=== PATIENT | female | born 1985 | race Caucasian/White ===

== ENCOUNTER 2017-01-03 20:06 | Emergency (ER) | payer SELFPAY ==
[~2017-01-03] VITALS: Ht 162.6 cm; Wt 111.1 kg
[~2017-01-03 20:06] MED LIST: AC325T; ACET250T3 PO; ASPI1TAB PO; CEPH500C PO; CIPR500T78 PO; CLIN300C3 PO; CLOT45CR46 TOP; DCS100C PO; DIAZ10TA PO; DOXY100C2 PO; DULO60CA6 PO; FLC100T1 PO; HCTZ12.5T PO; HYDR-1231 PO; HYDR-3714 PO; HYDR-3730 PO; HYDR-707 PO; HYDR118S10 PO; HYDR1TAB PO; IBP800T PO; LAMO100T69 PO; LEVO300T5 PO; LEVO50CA2 PO; LNZ600T PO; LVT.05T PO; LVT.15T PO; LVT.1T PO; MECL-124; METR500T PO; MPR22T TOP; OMEP40CA36 PO; ORPH100T PO; OXYC-103 PO; OXYC-272 PO; QUET300T PO; QUET300T3 PO; SCR1T PO; SPRINTEC PO; SULF-222 PO; SULF1TAB38 PO; SULF1TAB7 PO; [UNRECOGNIZED DRUG - OTHER]
--- OUTSIDE RECORDS SUMMARY | 2017-01-03 20:13 | XMS REPORT | Continuity of Care Document ---
Author Author Interface Organization Interface Address Unknown Phone Unavailable Problems Problem Status Onset Date Classification Date Reported Comments Source No data available for this section Problem 03/29/2016 Lot18 Medications Medication Details Route Status Patient Instructions Ordering Provider Order Date Source No Known Medications No known medications Active [employer] Allergies, Adverse Reactions, Alerts Substance Category Reaction Severity Reaction type Status Date Reported Comments Source Amoxicillin Assertion Drug allergy [employer] penicillins Assertion Drug allergy [employer] Tramadol Assertion hallucinations Drug allergy [employer] Immunizations Immunization Date Given Site Status Last Updated Comments Source No data available for this section No data available for this section [employer] Results Order Name Results Value Reference Range Date Interpretation Comments Source Vital Signs Vital Sign Value Date Comments Source Encounters Location Location Details Encounter Type Encounter Number Reason For Visit Attending Provider ADM Date DC Date Status Source [facility] [id number] Emergency [id number] Jareth Dee 10/23/201501/2015 Active [employer] Emergency [id number] Jon Dean 03/24/2016 03/26/2016 [employer] [employer] Emergency [id number] Jackelin Barnes 02/09/2016 02/11/2016 [employer] Emergency [id number] Jareth Dee 10/24/2015 10/25/2015 [employer] [employer] Emergency [id number] . No Family Physician 12/17/2015 12/19/2015 [id number] [id number] Jon Dean 03/24/2016 03/24/2016 Active [email or web address] [facility] [id number] Emergency [id number] Duncan Turner 02/09/2016 02/09/2016 Active [email or web address] [id number] Emergency [id number] Monty Fulton 12/17/2015 Active [email or web address] Procedures Procedure Code Date Perfomer Comments Source No data available for this section [employer] APPENDECTOMY [employer] BILATERAL EYE [employer]. HYSTERECTOMY [employer] THYROID REMOVED [employer] TONSILECTOMY [employer].
[2017-01-03] MEDS ORDERED: TRIM/SULFAMETH 160/800 (SEPTRA DS) TAB PO ONE (20:30)
[2017-01-03] MEDS ORDERED: SULF1TAB35 PO (20:30)
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
[2017-01-03 21:05] VITALS: BP 141/70
== END 2017-01-03 21:05 | disposition home or self-care (01) ==
LOC: EDUNIT# 20:06 → ER 20:09
DX: S80.11XA Contusion of right lower leg, initial encounter (principal); W18.09XA Striking against other object with subsequent fall, initial encounter; Y92.012 Bathroom of single-family (private) house as the place of occurrence of the external cause; Y99.8 Other external cause status
CPT/HCPCS: 99283

== ENCOUNTER 2018-01-12 11:01 | Emergency (ER) | payer SELFPAY ==
[~2018-01-12] VITALS: Ht 71.1 cm; Wt 104.3 kg
[~2018-01-12 11:01] MED LIST changes: +SULF1TAB35 PO
[2018-01-12] MEDS ORDERED: LIDOCAINE 2% 20 ML (XYLOCAINE) VIAL INJ ONE (11:15)
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
[2018-01-12 12:06] LABS: BASOPHILS % (AUTO) 1 % (0-10); EOSINOPHILS # (AUTO) 0.2 10^3/uL (0.0-0.3); EOSINOPHILS % (AUTO) 4 % (0-10); HEMATOCRIT 36 % (35-52); HEMOGLOBIN 11.8 G/DL (11.5-16.0); LYMPHOCYTES % (AUTO) 34 % (12-44); MEAN CORPUSCULAR HEMOGLOBIN 29 PG (25-34); MEAN CORPUSCULAR HGB CONC 33 G/DL (32-36); MEAN CORPUSCULAR VOLUME 89 FL (80-99); MEAN PLATELET VOLUME 10.2 FL (7.4-10.4); MONOCYTES # (AUTO) 0.4 X 10^3 (0.0-1.0); MONOCYTES % (AUTO) 6 % (0-12); NEUTROPHILS # (AUTO) 3.2 X 10^3 (1.8-7.8); NEUTROPHILS % (AUTO) 55 % (42-75); PLATELET COUNT 330 10^3/uL (130-400); RED BLOOD COUNT 4.01 10^6/uL (4.35-5.85); RED CELL DISTRIBUTION WIDTH 13.7 % (10.0-14.5); WHITE BLOOD COUNT 5.8 10^3/uL (4.3-11.0)
[2018-01-12] MEDS ORDERED: SULF1TAB35 PO (12:25)
[2018-01-12] MEDS ORDERED: TRIM/SULFAMETH 160/800 (SEPTRA DS) TAB PO ONE (12:30)
[2018-01-12 12:32] LABS: ALANINE AMINOTRANSFERASE 12 U/L (0-55); ALBUMIN 3.9 GM/DL (3.2-4.5); ALKALINE PHOSPHATASE 93 U/L (40-136); BILIRUBIN,TOTAL 0.3 MG/DL (0.1-1.0); BUN/CREATININE RATIO 16; CALCIUM 9.2 MG/DL (8.5-10.1); CARBON DIOXIDE 24 MMOL/L (21-32); CHLORIDE 107 MMOL/L (98-107); CREATININE SERUM 0.76 MG/DL (0.60-1.30); GFR ESTIMATED > 60; GLUCOSE 96 MG/DL (70-105); POTASSIUM 3.2 MMOL/L (3.6-5.0); SODIUM 143 MMOL/L (135-145); TOTAL PROTEIN 7.7 GM/DL (6.4-8.2)
[2018-01-12 12:43] VITALS: BP 132/99
== END 2018-01-12 12:40 | disposition home or self-care (01) ==
LOC: EDUNIT# 11:01 → ER 11:03
DX: L02.414 Cutaneous abscess of left upper limb (principal); E03.9 Hypothyroidism, unspecified; F41.9 Anxiety disorder, unspecified; F31.9 Bipolar disorder, unspecified; F42.9 Obsessive-compulsive disorder, unspecified; F17.210 Nicotine dependence, cigarettes, uncomplicated; Z90.710 Acquired absence of both cervix and uterus; Z90.89 Acquired absence of other organs; Z82.49 Family history of ischemic heart disease and other diseases of the circulatory system; Z87.448 Personal history of other diseases of urinary system; Z88.0 Allergy status to penicillin; Z88.1 Allergy status to other antibiotic agents; Z88.8 Allergy status to other drugs, medicaments and biological substances
CPT/HCPCS: 36415; 56420; 80053; 83605; 85025; 87040; 87070; 87077; 87205

== ENCOUNTER 2018-01-13 10:13 | Emergency (ER) | payer SELFPAY ==
--- OUTSIDE RECORDS SUMMARY | 2018-01-13 10:18 | XMS REPORT ---
Author Author LIZBETH TRAN Organization [employer] Address Unknown Phone Unavailable Care Team Providers Care Sou[employer] Vendor Name Role Phone LIZBETH TRAN CP Unavailable Allergies No Known Allergies Problems Problem Type Condition Code Onset Dates Condition Status Assessment Dysuria R30.0 Active Problem Encounter for long-term (current) use of other medications V58.69 Active Problem Generalized anxiety disorder 300.02 Active Assessment Urinary tract infection, site unspecified N39.0 Active Problem Chronic pain 338.29 Active Problem Migraines 346.90 Active Problem Hypothyroidism (acquired) 244.9 Active Problem Anxiety state, unspecified 300.00 Active Problem Unspecified episodic mood disorder 296.90 Active Problem Depression 311 Active Problem Major depressive disorder, recurrent episode, moderate 296.32 Active Medications No Known Medications Procedures Procedure Coding System Code Date Office Visit, Est Pt., Level 1 CPT-4 46355 Nov 19, 2015 URINALYSIS, AUTO, W/O SCOPE CPT-4 18719 Nov 19, 2015 Results Name Result Date Reference Range Unit Abnormality Flag UA LONG DIP (IN HOUSE) ----ALIE +++ [id number] Summary Purpose [employer] Submission
--- OUTSIDE RECORDS SUMMARY | 2018-01-13 10:18 | XMS REPORT ---
Author Author Chelsea Melchor Organization [employer] Address Unknown Phone Unavailable Care Team Providers Care Sales Account Specialist Name Role Phone Chelsea Melchor CP Unavailable Allergies No Known Allergies Problems Problem Type Condition Code Onset Dates Condition Status Assessment Anxiety disorder, unspecified F41.9 Active Assessment Bipolar disorder, unspecified F31.9 Active Medications Medication Code System Code Instructions Start Date End Date Status Dosage Tylenol NDC [address]-29 not defined BuSpar NDC 0 not defined Levothyroxine Sodium NDC [address]-97 not defined Procedures Procedure Coding System Code Date Multiple services provided same day adj 2nd copay CPT-4 INTEG Nov 05, 2015 Psych Evaluation New CPT-4 99282 Nov 05, 2015 Results No Known Results Summary Purpose [employer] Submission
--- OUTSIDE RECORDS SUMMARY | 2018-01-13 10:18 | XMS REPORT ---
Author Author TEMO GALARZA Organization Unknown Address [address] [place], [place] [address] [address] Care Team Providers Care Relief Map Modeler Name Role Phone TEMO GALARZA Unavailable [facility] Unavailable Problems Problem SNOMED Onset Date Resolved Date Status N/A N/A N/A N/A N/A Allergies, Adverse Reactions Substance Code Type Code Type Reaction Severity Status NKA - NO KNOWN ALLERGIES SNOMED CT Inactive PCN (penicillin) SNOMED CT Active AMOXICILLIN RxNorm 723 Active Care Plan Date Name Code Type Code [place], Serum ([place] Level) (Li, Blood) (LiCO3) ( Lithobid) 98099 Complete Blood Count (CBC) With Differential 12373 Metabolic Panel (14), Comprehensive (MPC), CMP 63334 Thyroid-stimulating Hormone (TSH) (Thyrotropin) (Third Generation TSH) 84619 Urinalysis, Complete With Microscopic Examination (UA) ( UA Complete) 53275 Medications Medication Code Dose,Form,Route,Freq Start Date End Date QUEtiapine Fumarate - 100MG ORAL Tablet 100975 Take one (1 ) Tablet At Bedtime [place] Carbonate - 300MG ORAL Capsule 699464 Take one (1) Capsule Each Morning AND two (2) Capsules At Bedtime QUEtiapine Fumarate - 100 MG ORAL Tablet 652529 Take one (1 ) Tablet At Bedtime Benztropine Mesylate - 1 MG ORAL Tablet 507792 Take one (1 ) Tablet Twice a Day lamoTRIgine - 25 MG ORAL Tablet 257827 Take one (1) Tablet Twice a Day busPIRone - 10 MG ORAL Tablet 997555 Take one (1) Tablet Three Times a Day QUEtiapine Fumarate - 100 MG ORAL Tablet 386531 Take one (1 ) Tablet Twice a Day lamoTRIgine - 100 MG ORAL Tablet 905362 Take one (1) Tablet Twice a Day QUEtiapine Fumarate - 100 MG ORAL Tablet 986457 Take one (1 ) Tablet Twice a Day Lab Results NA Encounters Date Time Service Code Provider 11:24:00 am [facility] SCHMITT 08:35:00 am TEMO GALARZA Family History Functional Status NA Immunizations NA Vital Signs Date Time BP Pulse Temp Height Weight BMI 03:02:00 pm over 64 in 203.6 lbs 34.9 kg/m^2 Social History Date Smoking Status SNOMED Code Current Every Day Smoker [id number] Hospital Discharge Instructions NA Instructions * Not Applicable Procedures NA Purpose Electronic Copy
--- OUTSIDE RECORDS SUMMARY | 2018-01-13 10:18 | XMS REPORT ---
Author Kojo Arita [facility] [employer] Address Unknown Phone Unavailable Care Team Providers Care Master Chef Name Role Phone Kojo Bernard CP Unavailable Allergies No Known Allergies Problems Problem Type Condition Code Onset Dates Condition Status Assessment Polysubstance abuse F19.10 Active Assessment Polysubstance dependence in early, early partial, sustained full, or sustained partial remission F19.21 Active Assessment H/O thyroidectomy E89.0 Active Medications Medication Code System Code Instructions Start Date End Date [place] D[place] [address]-06 not defined BuSpar NDC 0 [place] [address]-66 not defined Procedures Procedure Coding System Code Date Charge billed by Lab CPT-4 NOBIL Nov 05, 2015 URINALYSIS AUTO WO SCOPE URINALYSIS, BY DIP STICK OR TABLET REAGENT FOR BILIRUBIN, GLUCOSE, HEMOGLOBIN, KETONES, LEUKOCYTES, NITRITE, PH, PROTEIN, SPECIFIC GRAVITY, UROBILINOGEN, ANY NUMBER OF THESE CONSTITUENTS; AUTOMATED, WITHOUTMICROSCOPY CPT-4 37058 Nov 05, 2015 GLYCOSYLATED HEMOGLOBIN TEST HEMOGLOBIN; GLYCOSYLATED (A1C) CPT-4 43640 Nov 05, 2015 OFFICEOUTPATIENT VISIT EST OFFICE OR OTHER OUTPATIENT VISIT FOR THE EVALUATION AND MANAGEMENT OF AN ESTABLISHED PATIENT, WHICHREQUIRES AT LEAST 2 OF THESE 3 DAVE COMPONENTS, AN EXPANDED PROBLEM FOCUSED HISTORY,AN EXPANDED PROBLEM FOCUSED EXAMINATION CPT-4 33231 Nov 05, 2015 URINALYSIS, AUTO W/SCOPE CPT-4 82049 Nov 05, 2015 Vital Signs Date/Time: Nov 05, 2015 Blood Pressure Systolic 130 mm Hg Cardiac Monitoring Heart Rate 90 /min Temperature 98.1 F BMI 36.16 Index Weight 214 lbs Height 64.5 in Blood Pressure Diastolic 80 mm Hg Respiratory Rate 14 /min Results Name Result Date Reference Range Unit Abnormality Flag TSH ----TSH 0.265 [id number] 0.450-4.500 uIU/mL L Hemoglobin A1c ----HEMOGLOBIN A1C 5.2 [id number] Urinalysis, Complete ----Glucose Negative [id number] Negative ----Protein Negative [id number] Negative/Trace ----Occult Blood Negative [id number] Negative ----Ketones Negative [id number] Negative ----Urobilinogen,Semi-Qn 0.2 20151105 0.2-1.0 mg/dL ----Nitrite, Urine Negative 20151105 Negative ----Bilirubin Negative 20151105 Negative ----RBC 0-2 [id number] 0 - 2 /hpf ----Appearance Clear [id number] Clear ----Epithelial Cells (non renal) 0-10 20151105 0 - 10 /hpf ----WBC Esterase 1+ [id number] Negative A ----pH 5.5 20151105 5.0-7.5 ----Microscopic Examination See below: [id number] ----WBC 0-5 [id number] 0 - 5 /hpf ----Urine-Color Yellow 20151105 Yellow ----Specific Serena 1.013 20151105 1.005-1.030 ----Mucus Threads Present [id number] Not Estab. ----Bacteria Few [id number] None seen/Few Summary Purpose [employer] Submission
--- OUTSIDE RECORDS SUMMARY | 2018-01-13 10:18 | XMS REPORT ---
Author Author ASHER SORTO Organization [employer] Address Unknown Phone Unavailable Care Team Providers Care Air Export Logistics Manager Name Role Phone ASHER SROTO CP Unavailable Allergies No Known Allergies Problems Problem Type Condition Code Onset Dates Condition Status Problem Encounter for long-term (current) use of other medications V58.69 Active Problem Generalized anxiety disorder 300.02 Active Problem Chronic pain 338.29 Active Problem Migraines 346.90 Active Problem Hypothyroidism (acquired) 244.9 Active Problem Anxiety state, unspecified 300.00 Active Problem Unspecified episodic mood disorder 296.90 Active Problem Depression 311 Active Problem Major depressive disorder, recurrent episode, moderate 296.32 Active Medications No Known Medications Results No Known Results Summary Purpose [employer] Submission
--- OUTSIDE RECORDS SUMMARY | 2018-01-13 10:19 | XMS REPORT ---
Author Author TEMO GALARZA Organization Unknown Address [address] [place] [address] Care Team Providers Care Fleet Coordinator Name Role Phone TEMO GALARZA Unavailable NHI SCHMITT Unavailable ADDIS BARRERA Unavailable Problems Problem SNOMED Onset Date Resolved Date Status Mental health problem 493699800 Active Review of medication 498247739 Active Posttraumatic stress disorder 81147789 Active Disorder of thyroid gland 79440139 Active Allergies, Adverse Reactions Substance Code Type Code Type Reaction Severity Status NKA - NO KNOWN ALLERGIES SNOMED CT Inactive PCN (penicillin) SNOMED CT Active AMOXICILLIN RxNorm 723 Active Care Plan Goal Instructions Client will be functioning more independently with supports and have a life worth living. Engage with treatment team to build rapport. Learn and practice coping skills to reduce symptoms and improve functioning. The following Services will be utilized 1 - 3 times until goal is reached: Improve and maintain functioning through medical psychiatric services. Initial Psychiatric Evaluation, Ongoing medication monitoring and management , Case Conference with multidisciplinary members of the [facility] team as indicated, and/or Collaboration and coordination with outside medical providers as indicated by providing the following services: 36101 interactive complexity 93385 psychiatric diagnostic eval w/ meds 42728 30 min psychotherapy add-on 21855 45 [place] [address] 60 min psychotherapy add-on 36419 med injection 17653 New Patient E&M (level 1) 40782 New Patient E&M (level 2) 82199 New Patient E&M (level 3) 07006 New patient E&M (level 4) 44039 New Patient E&M (level 5) 89054 Established Patient E&M (level 1) 19304 Established Patient E&M (level 2) 67771 Established Patient E&M (level 3) 78859 Established Patient E&M (level 4) 80895 Established Patient E&M (level 5 ) 9935x prolonged service code 07205 case conference w/o da & ubaldo w/ 34766 case conference w/o da song/ H0038 Peer Support Dina "I WANT TO MOVE CLOSER TO MY FAMILY SO I CAN FEEL SUPPORT AND COMPLY WITH MY PROBATION AND BE ABLE TO GET MY KIDS BACK." CM WILL ASSIST WITH MEDICATION APPOINTMENTS, REFILLS, AND TRANSFER TO [facility]. Date Name Code Type Code Townsend, Serum (Townsend Level) (Li, Blood) (LiCO3) ( Lithobid) 63521 Complete Blood Count (CBC) With Differential 51054 Metabolic Panel (14), Comprehensive (MPC), CMP 28288 Thyroid-stimulating Hormone (TSH) (Thyrotropin) (Third Generation TSH) 41625 Urinalysis, Complete With Microscopic Examination (UA) ( UA Complete) 34402 Medications Medication Code Dose,Form,Route,Freq Start Date End Date AVOID STIM, AVOID YAZAN, EMORY; MAY CONSIDER KLON LATER PT MOVING APPARENTLY, GAVE 1 RF TO GET HER CONNECTED WITH NEW CLINIC QUEtiapine Fumarate - 100MG ORAL Tablet 803932 Take one (1 ) Tablet At Bedtime Townsend Carbonate - 300MG ORAL Capsule 380849 Take one (1) Capsule Each Morning AND two (2) Capsules At Bedtime QUEtiapine Fumarate - 100 MG ORAL Tablet 068341 Take one (1 ) Tablet At Bedtime Benztropine Mesylate - 1 MG ORAL Tablet 352843 Take one (1 ) Tablet Twice a Day lamoTRIgine - 25 MG ORAL Tablet 921390 Take one (1) Tablet Twice a Day busPIRone - 10 MG ORAL Tablet 812944 Take one (1) Tablet Three Times a Day QUEtiapine Fumarate - 100 MG ORAL Tablet 610663 Take one (1 ) Tablet Twice a Day lamoTRIgine - 100 MG ORAL Tablet 448297 Take one (1) Tablet Twice a Day QUEtiapine Fumarate - 100 MG ORAL Tablet 379927 Take one (1 ) Tablet Twice a Day Prazosin HCl - 1 MG ORAL Capsule 180040 Take one (1) Capsule At Bedtime Sertraline HCl - 25 MG ORAL Tablet 641748 Take one (1) Tablet Daily lamoTRIgine - 150 MG ORAL Tablet 936771 Take one (1) Tablet Twice a Day Levothyroxine Sodium - 200 MCG ORAL Tablet 526447 Take one (1) Tablet Daily Prazosin HCl - 2 MG ORAL Capsule 416204 Take one (1) Capsule At Bedtime lamoTRIgine - 150 MG ORAL Tablet 343165 Take one (1) Tablet Twice a Day Levothyroxine Sodium - 200 MCG ORAL Tablet 399294 Take one (1) Tablet Daily Sertraline HCl - 25 MG ORAL Tablet 200522 Take one (1) Tablet Daily RisperDAL - 0.5 MG ORAL Tablet 965450 Take one (1) Tablet At Bedtime RisperDAL - 0.5 MG ORAL Tablet 938207 Take one (1) Tablet At Bedtime lamoTRIgine - 150 MG ORAL Tablet 392315 Take one (1) Tablet Twice a Day Prazosin HCl - 2 MG ORAL Capsule 332096 Take one (1) Capsule At Bedtime Levothyroxine Sodium - 200 MCG ORAL Tablet 942910 Take one (1) Tablet Daily Sertraline HCl - 25 MG ORAL Tablet 682851 Take one (1) Tablet Daily Lab Results NA Encounters Date Time Service Code Provider 11:24:00 am NHI SCHMITT 08:35:00 am TEMO GALARZA Family History Functional Status NA Immunizations NA Vital Signs Date Time BP Pulse Temp Height Weight BMI 11:55:00 am 119 over 81 82 bpm 64.5 in 237 lbs 40 kg/m^2 03:02:00 pm over 64 in 203.6 lbs 34.9 kg/m^2 Social History NA Hospital Discharge Instructions NA Hospital Discharge medications Date Medication Dose, Form, Route, Freq Code AVOID STIM, AVOID YAZAN, EMORY; MAY CONSIDER KLON LATER PT MOVING APPARENTLY, GAVE 1 RF TO GET HER CONNECTED WITH [facility] Instructions * Not Applicable Procedures NA Purpose Electronic Copy
--- OUTSIDE RECORDS SUMMARY | 2018-01-13 10:19 | XMS REPORT ---
Author Author TEMO GALARZA Organization Unknown Address [address] [place] [address] Care Team Providers Care Tool Drawing Checker Name Role Phone TEMO GALARZA Unavailable NHI SCHMITT Unavailable Problems Problem SNOMED Onset Date Resolved Date Status Mental health problem [id number] Active Review of medication 926757975 Active Posttraumatic stress disorder 19940195 Active Disorder of thyroid gland 58733837 Active Allergies, Adverse Reactions Substance Code Type [...] Initial Psychiatric Evaluation, Ongoing medication monitoring and management, Case Conference with multidisciplinary members of the [facility] [place] as indicated, and/or Collaboration and coordination with outside medical providers as indicated by providing the following services: 63085 interactive complexity 49150 psychiatric diagnostic eval w/ meds 73318 30 min psychotherapy add-on 58514 45 [place] [address] 60 min psychotherapy add-on 46262 med injection 79760 New Patient E&M (level 1) 73647 New Patient E&M (level 2) 66681 New Patient E&M (level 3) 73685 New patient E& M (level 4) 09522 New Patient E&M (level 5) 16371 Established Patient E&M ( level 1) 05010 Established Patient E&M (level 2) 27030 Established Patient E&M (level 3) 57179 Established Patient E&M (level 4) 62000 Established Patient E& M (level 5) 9935x prolonged service code 45452 case conference w/o clcrystal & fam w / 64535 case conference w/o da song/ H0038 Peer Support Dina Date Name Code Type Code Cochran, Serum (Cochran Level) (Li, Blood) (LiCO3) ( Lithobid) 18193 Complete Blood Count (CBC) With Differential 41631 Metabolic Panel (14), Comprehensive (MPC), CMP 05765 Thyroid-stimulating Hormone (TSH) (Thyrotropin) (Third Generation TSH) 45938 Urinalysis, Complete With Microscopic Examination (UA) ( UA Complete) 16599 Date Time Service Provider Location 08:00:00 am PSYCHOTHERAPY, 38-52 MINUTES [facility] [address] Medications Medication Code Dose,Form,Route,Freq Start Date End Date AVOID STIM, AVOID YAZAN, EMORY; MAY CONSIDER KLON LATER QUEtiapine Fumarate - 100MG ORAL Tablet 736077 Take one (1 ) Tablet At Bedtime Cochran Carbonate - 300MG ORAL Capsule 283881 Take one (1) Capsule Each Morning AND two (2) Capsules At Bedtime QUEtiapine Fumarate - 100 MG ORAL Tablet 685889 Take one (1 ) Tablet At Bedtime Benztropine Mesylate - 1 MG ORAL Tablet 557548 Take one (1 ) Tablet Twice a Day lamoTRIgine - 25 MG ORAL Tablet 110275 Take one (1) Tablet Twice a Day busPIRone - 10 MG ORAL Tablet 451048 Take one (1) Tablet Three Times a Day QUEtiapine Fumarate - 100 MG ORAL Tablet 220573 Take one (1 ) Tablet Twice a Day lamoTRIgine - 100 MG ORAL Tablet 933833 Take one (1) Tablet Twice a Day QUEtiapine Fumarate - 100 MG ORAL Tablet 937211 Take one (1 ) Tablet Twice a Day Prazosin HCl - 1 MG ORAL Capsule 060446 Take one (1) Capsule At Bedtime Sertraline HCl - 25 MG ORAL Tablet 892384 Take one (1) Tablet Daily lamoTRIgine - 150 MG ORAL Tablet 749164 Take one (1) Tablet Twice a Day Levothyroxine Sodium - 200 MCG ORAL Tablet 804263 Take one (1) Tablet Daily Lab Results [...] Status SNOMED Code Current Every Day Smoker [id number] Hospital Discharge Instructions NA Hospital Discharge medications Date Medication Dose, Form, Route, Freq Code AVOID STIM, AVOID YAZAN, EMORY; MAY CONSIDER KLON LATER Instructions * Not Applicable Procedures NA Purpose Electronic Copy
--- OUTSIDE RECORDS SUMMARY | 2018-01-13 10:19 | XMS REPORT | Clinical Summary ---
Author Author DVINYARD Organization Unknown Address Unknown Phone Unavailable Drug Allergies and Adverse Reactions SNOMED Allergy Type Code Substance Substance RxNorm code Reaction Severity Date Identified Date Resolved Status Problems SNOMED CT Problem Onset Date Ended Date Status Medications RxNorm Code Medication Began Ended Dosage Frequency Route Units Status Metronidazole 500 mg 4 tabs as a single dose 12/06/2015 12/06/2015 Completed Diagnostic Results Lab Results LOINC Code Lab Test Result Abnormal Completed Date CHLAMYDIA [0] N GONORRHEA [0] N HEPATITIS C KDHE [0] N HIV-KDHE4 4th GENERATION [0] N HIV RAPID NON-REACTIVE[0] N 2015 WETM01 WBC MANY[0] Y 12/06/2015 WETM02 BACTERIA MANY[0] Y 12/06/2015 WETM03 CLUE CELLS MODERATE[0] Y 12/06 WETM04 YEAST NONE SEEN[0] N 2015 WETM05 TRICHOMONAS PRESENT[0] Y 12/06 WETM06 OTHER n/a[0] N 12/06/2015 RPR NON-REACTIVE[0] N 12/10/2015 Encounters Date Location Type 12/06/2015 [facility]STD[facility] CLINIC Vital Signs Date Height(cm) Weight(kg) Head Circ(cm) BP-Systolic BP-Diastolic Temperature(C) Respiration Heart Beat Oxygen(%)
[2018-01-13 11:03] VITALS: BP 0/0
== END 2018-01-13 11:04 | disposition left against medical advice (07) ==
LOC: EDUNIT# 10:13 → ER 10:15
DX: Z48.00 Encounter for change or removal of nonsurgical wound dressing (principal)
CPT/HCPCS: 99281

== ENCOUNTER 2019-03-01 16:34 | Emergency (ER) | payer SELFPAY ==
[~2019-03-01] VITALS: Ht 162.6 cm; Wt 104.3 kg
--- OUTSIDE RECORDS SUMMARY | 2019-03-01 16:41 | XMS REPORT | Continuity of Care Document ---
Author Organization Unknown Address Unknown Allergies Active Description Code Type Severity Reaction Onset Reported/Identified Relationship to Patient Clinical Status Yes amoxicillin Drug Allergy N/A N/A 02/18/2010 Yes Penicillins Drug Allergy N/A N/A 02/18/2010 Yes amoxicillin Drug Allergy 02/18/2010 Yes Penicillins Drug Allergy 02/18/2010 Medications There is no data. Problems Date Dx Coded Attending Type Code Diagnosis Diagnosed By 02/18/2010 ИРИНА MAYERS APRN 682.2 SKIN ABSCESS OF THE TRUNK 02/18/2010 ИРИНА MAYERS APRN 705.83 HIDRADENITIS SUPPURATIVA 02/18/2010 ARVIN VALLE PHD 682.2 SKIN ABSCESS OF THE TRUNK 02/18/2010 ARVIN VALLE PHD 705.83 HIDRADENITIS SUPPURATIVA 02/18/2010 682.2 SKIN ABSCESS OF THE TRUNK 02/18/2010 705.83 HIDRADENITIS SUPPURATIVA 02/18/2010 ARVIN VALLE PHD 682.2 SKIN ABSCESS OF THE TRUNK 02/18/2010 ARVIN VALLE PHD 705.83 HIDRADENITIS SUPPURATIVA 02/18/2010 ИРИНА MAYERS APRN 682.2 SKIN ABSCESS OF THE TRUNK 02/18/2010 ИРИНА MAYERS APRN 705.83 HIDRADENITIS SUPPURATIVA 02/18/2010 ИРИНА MAYERS APRN 682.2 SKIN ABSCESS OF THE TRUNK 02/18/2010 ИРИНА MAYERS APRN 705.83 HIDRADENITIS SUPPURATIVA 02/18/2010 EDMUND VELEZ DDS 682.2 SKIN ABSCESS OF THE TRUNK 02/18/2010 EDMUND VELEZ DDS 705.83 HIDRADENITIS SUPPURATIVA 11/19/2011 ИРИНА MAYERS APRN 401.1 HYPERTENSION, BENIGN ESSENTIAL 11/19/2011 ИРИНА MAYERS APRN KAZ 461.9 SINUSITIS ACUTE 11/19/2011 TALIB GOLDNИРИНА V65.42 COUNSELING - SMOKING CESSATION 11/19/2011 ARVIN VALLE PHD 401.1 HYPERTENSION, BENIGN ESSENTIAL 11/19/2011 ARVIN VALLE PHD 461.9 SINUSITIS ACUTE 11/19/2011 ARVIN VALLE PHD V65.42 COUNSELING - SMOKING CESSATION 11/19/2011 401.1 HYPERTENSION, BENIGN ESSENTIAL 11/19/2011 461.9 SINUSITIS ACUTE 11/19/2011 V65.42 COUNSELING - SMOKING CESSATION 11/19/2011 ARVIN VALLE PHD 401.1 HYPERTENSION, BENIGN ESSENTIAL 11/19/2011 ARVIN VALLE PHD 461.9 SINUSITIS ACUTE 11/19/2011 ARVIN VALLE PHD V65.42 COUNSELING - SMOKING CESSATION 11/19/2011 MAYERS APRNИРИНА 401.1 HYPERTENSION, BENIGN ESSENTIAL 11/19/2011 TALIB GOLDNИРИНА 461.9 SINUSITIS ACUTE 11/19/2011 MAYERS INVESTMENT SALES ASSISTANT, ИРИНА KAZ V65.42 COUNSELING - SMOKING CESSATION 11/19/2011 TALIB GOLDNИРИНА 401.1 HYPERTENSION, BENIGN ESSENTIAL 11/19/2011 TALIB GOLDNИРИНА 461.9 SINUSITIS ACUTE 11/19/2011 TALIB GOLDTito ИРИНА KAZ V65.42 COUNSELING - SMOKING CESSATION 11/19/2011 WHITE DDS, EDMUND J 401.1 HYPERTENSION, BENIGN ESSENTIAL 11/19/2011 WHITE DDS, EDMUND J 461.9 SINUSITIS ACUTE 11/19/2011 WHITE DDS, EDMUND J V65.42 COUNSELING - SMOKING CESSATION 01/01/2012 TALIB EATON ИРИНА KAZ 296.32 MO DEPRESSIVE RECURRENT MODERATE 01/01/2012 TALIB EATON ИРИНА KAZ 300.00 AN ANXIETY UNSPEC 01/01/2012 ARVIN VALLE PHD 296.32 MO DEPRESSIVE RECURRENT MODERATE 01/01/2012 ARVIN VALLE PHD 300.00 AN ANXIETY UNSPEC 01/01/2012 296.32 MO DEPRESSIVE RECURRENT MODERATE 01/01/2012 300.00 AN ANXIETY UNSPEC 01/01/2012 ARVIN VALLE PHD 296.32 MO DEPRESSIVE RECURRENT MODERATE 01/01/2012 ARVIN VALLE PHD 300.00 AN ANXIETY UNSPEC 01/01/2012 ИРИНА MAYERS APRN 296.32 MO DEPRESSIVE RECURRENT MODERATE 01/01/2012 ИРИНА MAYERS APRN 300.00 AN ANXIETY UNSPEC 01/01/2012 ИРИНА MAYERS APRN 296.32 MO DEPRESSIVE RECURRENT MODERATE 01/01/2012 ИРИНА MAYERS APRN 300.00 AN ANXIETY UNSPEC 01/01/2012 EDMUND VELEZ DDS Neli 296.32 MO DEPRESSIVE RECURRENT MODERATE 01/01/2012 WHITE EDMUND BARRIENTOS Neli 300.00 AN ANXIETY UNSPEC 09/07/2012 TALIB GOLDNИРИНА 296.90 MOOD DISORDER NOS 09/07/2012 LEONARD TOTH, ARVIN Landeros 296.90 MOOD DISORDER NOS 09/07/2012 296.90 MOOD DISORDER NOS 09/07/2012 LEONARD TOTH, ARVIN Landeros 296.90 MOOD DISORDER NOS 09/07/2012 TALIB INVESTMENT SALES ASSISTANT, ИРИНА KAZ 296.90 MOOD DISORDER NOS 09/07/2012 MAYERS INVESTMENT SALES ASSISTANT, ИРИНА EMMANUELH 296.90 MOOD DISORDER NOS 09/07/2012 AGUSTIN EDMUND BARRIENTOS Neli 296.90 MOOD DISORDER NOS 09/08/2012 MAYERSCHRISTA GOLDTito ИРИНА EMMANUELH V58.69 MEDICATION HIGH RISK 09/08/2012 LEONARD TOTH, ARVIN Landeros V58.69 MEDICATION HIGH RISK 09/08/2012 V58.69 MEDICATION HIGH RISK 09/08/2012 LEONARD TOTH, ARVIN Landeros V58.69 MEDICATION HIGH RISK 09/08/2012 TALIB INVESTMENT SALES ASSISTANT, ИРИНА EMMANUELH V58.69 MEDICATION HIGH RISK 09/08/2012 TALIB INVESTMENT SALES ASSISTANT, ИРИНА EMMANUELH V58.69 MEDICATION HIGH RISK 09/08/2012 AGUSTIN EDMUND BARRIENTOS Neli V58.69 MEDICATION HIGH RISK 07/14/2013 TALIB GOLDNИРИНАH 300.02 AN GEN ANXIETY 07/14/2013 EDMUND VELEZ DDS Neli 300.02 AN GEN ANXIETY Procedures Code [place] [address] ROUTINE VENIPUNCTURE 09/13/2012 03489 LIPID PANEL 09/13/2012 66952 CBC 09/13/2012 61417 CMP 09/13/2012 5102756 GFR CALC (RESULT ONLY) 09/13/2012 68893 T4 FREE 09/14/2012 51619 T3 TOTAL 09/14/2012 52568 TSH 09/14/2012 83472 VITAMIN D 25-HYDROXY (D2,D3 , TOTAL) 09/14/2012 44263 TESTOSTERONE-WOMEN & CHILDREN 09/17/2012 60930 INDIV PSYTX 45/50 MIN 11/17/2012 56782 PSYTX PT&/FAMILY 45 MINUTES 01/03/2013 82570 PSYCH PHARM MGMT 01/11/2013 05314 PSYTX PT&/FAMILY 45 MINUTES 01/17/2013 Results There is no data. Encounters ACCT No. Visit Date/Time Discharge Status Pt. Type Provider Facility Loc./Unit Complaint [id number] 10/03/2013 14:31:00 10/03/2013 23:59:59 CLS Outpatient EDMUND VELEZ DDS [id number] 07/14/2013 16:22:00 07/14/2013 23:59:59 CLS Outpatient ИРИНА MAYERS APRN [id number] 02/21/2013 10:42:00 02/21/2013 23:59:59 CLS Outpatient ИРИНА MAYERS APRN [id number] 01/11/2013 15:53:00 01/11/2013 23:59:59 CLS Outpatient ARVIN VALLE PHD [id number] 12/28/2012 15:53:00 12/28/2012 23:59:59 CLS Outpatient [id number] 11/17/2012 14:55:00 11/17/2012 23:59:59 CLS Outpatient ARVIN VALLE PHD [id number] 09/13/2012 11:13:00 09/13/2012 23:59:59 CLS Outpatient ИРИНА MAYERS APRN
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
[2019-03-01] MEDS ORDERED: LIDOCAINE 1% INJ 20 ML 20 ML VIAL INJ ONE (17:00)
[2019-03-01] MEDS ORDERED: DEXAMETHASONE 10 MG/ML (DECADRON) 1 ML VIAL IV ONE (17:00)
[2019-03-01] MEDS ORDERED: cefTRIAXone FOR IV USE 1,000 MG in WATER (STERILE) FOR INJECTION 10 ML IV ONE (17:00)
[2019-03-01 17:11] LABS: BASOPHILS % (AUTO) 0 % (0-10); EOSINOPHILS # (AUTO) 0.3 10^3/uL (0.0-0.3); EOSINOPHILS % (AUTO) 2 % (0-10); HEMATOCRIT 35 % (35-52); HEMOGLOBIN 11.5 G/DL (11.5-16.0); LYMPHOCYTES # (AUTO) 1.2 X 10^3 (1.0-4.0); LYMPHOCYTES % (AUTO) 9 % (12-44); MEAN CORPUSCULAR HEMOGLOBIN 29 PG (25-34); MEAN CORPUSCULAR HGB CONC 33 G/DL (32-36); MEAN CORPUSCULAR VOLUME 90 FL (80-99); MONOCYTES # (AUTO) 0.6 X 10^3 (0.0-1.0); MONOCYTES % (AUTO) 5 % (0-12); NEUTROPHILS # (AUTO) 10.6 X 10^3 (1.8-7.8); NEUTROPHILS % (AUTO) 83 % (42-75); PLATELET COUNT 307 10^3/uL (130-400); RED CELL DISTRIBUTION WIDTH 14.2 % (10.0-14.5); WHITE BLOOD COUNT 12.7 10^3/uL (4.3-11.0)
[2019-03-01 17:31] LABS: ALANINE AMINOTRANSFERASE 17 U/L (0-55); ALBUMIN 4.1 GM/DL (3.2-4.5); ALKALINE PHOSPHATASE 102 U/L (40-136); BILIRUBIN,TOTAL 0.3 MG/DL (0.1-1.0); BUN/CREATININE RATIO 14; CALCIUM 9.3 MG/DL (8.5-10.1); CARBON DIOXIDE 26 MMOL/L (21-32); CHLORIDE 105 MMOL/L (98-107); CREATININE SERUM 0.79 MG/DL (0.60-1.30); GFR ESTIMATED > 60; GLUCOSE 99 MG/DL (70-105); POTASSIUM 3.7 MMOL/L (3.6-5.0); SODIUM 140 MMOL/L (135-145); TOTAL PROTEIN 7.7 GM/DL (6.4-8.2)
--- NOTE | 2019-03-01 17:37 | Diagnostic Imaging Report ---
INDICATION: Cough, shortness of air. COMPARISON STUDY: Chest from 2015. FINDINGS: Frontal and lateral views of the chest demonstrate the lungs to be clear. Heart, mediastinum, pulmonary vascularity and visualized bony thorax are normal. IMPRESSION: Normal chest. Dictated by: Dictated on workstation # [id number]
--- NOTE | 2019-03-01 17:38 | Diagnostic Imaging Report ---
CLINICAL INDICATION: Patient with sore throat. Patient states it is swollen. EXAM: X-ray of the neck soft tissue, lateral view only. COMPARISON: None. FINDINGS AND IMPRESSION: 1: There is soft tissue thickening involving the posterior oropharyngeal soft tissue measuring roughly 9 mm. There is no evidence of radiodense foreign body or subcutaneous air seen. CT scan of the neck soft tissue with contrast is suggested for further evaluation. 2: There is small amount of air within the esophagus noted in the cervical portion. Otherwise, it is unremarkable. 3: The remainder of this exam shows no other significant abnormality. Dictated by: Dictated on workstation # [id number]
[2019-03-01] MEDS ORDERED: IOHEXOL 350 MG/ML 150 ML (OMNIPAQUE 350) VIAL IV ONE (17:45)
[2019-03-01] MEDS ORDERED: HOLD METFORMIN - RECEIVED CONTRAST 20 ML VIAL IV SCH (17:45)
--- NOTE | 2019-03-01 18:39 | Diagnostic Imaging Report ---
Clinical indication: Patient with internal neck swelling, sore throat and difficulty breathing and nasal infection. Exam: CT scan of the neck soft tissue performed with 75 cc of Omnipaque 350 IV contrast. Sagittal and coronal reformatted images were created. Comparison: X-ray of the neck soft tissue dated 03/01/2019. CT scan of the neck soft tissue with contrast dated 01/11/2013. Findings: There is interval slight increased size of the bilateral neck lymph nodes. Marker lymph node is in the right level IIa region which measures 1.0 cm x 2.0 cm. There is also a prominent lymph node at the left level IIa region, measuring 1.0 cm x 1.8 cm. There is stable prominence of the posterior nasopharyngeal adenoid soft tissue. There is slight increase in prominence of the bilateral palatine tonsils and peripheral oropharyngeal soft tissue. There is no retropharyngeal fluid collection or fat stranding. There are small bilateral retropharyngeal lymph nodes which have slightly increased in size compared to the prior study. There is no peritonsillar abscess. There is interval increased size of a slightly dense lobulated area within the left infrahyoid strap muscle which measures 10 mm x 16 mm in axial dimension and is roughly 1.8 cm in craniocaudal dimension. Previously, this area measured 7 mm x 5 mm in axial dimension. The thyroid gland is not seen and may be absent from post treatment or postop changes. The laryngeal and hypopharyngeal structures are unremarkable. The bilateral salivary glands are unremarkable. The visualized portion of the lower cavity, tongue, sublingual region and submandibular area is unremarkable. The neck vascular structures are unremarkable. Visualized upper lung grajeda are clear. Cervical spine is unremarkable. Limited visualization of he intracranial structures is unremarkable. There is mild mucosal thickening involving the ethmoid sinus, right maxillary sinus and sphenoid sinus. Temporal bone structures show no significant abnormality. There is a stable chronic deformity of the medial wall of the right orbit. Impression: 1: There is slight increased soft tissue prominence of the bilateral palatine tonsils and oropharyngeal soft tissue which may be related to pharyngitis. There is no evidence of abscess or adjacent fat stranding. There is stable prominence of the posterior nasopharyngeal adenoid soft tissue. These findings may be from infection or inflammatory process. There is no retropharyngeal abscess. 2: There is interval increased size of bilateral neck lymph nodes, likely reactive. 3: There is interval increased size of a nonspecific hyperdense area in the left infrarenal strap muscle. Clinical correlation for trauma in this region is suggested. Otherwise, vascular structure or mass may be considered. A vascular varix or lymphangioma may also be considered. Nonemergent MRI of the neck soft tissue with and without IV contrast is suggested for further evaluation. Dictated by: Dictated on workstation # [id number]
[2019-03-01] MEDS ORDERED: CEFU250T80 PO (18:46)
[2019-03-01 18:58] VITALS: BP 162/119
== END 2019-03-01 18:55 | disposition home or self-care (01) ==
LOC: EDUNIT# 16:34 → ER 16:35
DX: N61.1 Abscess of the breast and nipple (principal); J02.9 Acute pharyngitis, unspecified; E03.9 Hypothyroidism, unspecified; F41.9 Anxiety disorder, unspecified; F31.9 Bipolar disorder, unspecified; F42.9 Obsessive-compulsive disorder, unspecified; Z82.49 Family history of ischemic heart disease and other diseases of the circulatory system; Z88.0 Allergy status to penicillin; Z88.6 Allergy status to analgesic agent; Z90.49 Acquired absence of other specified parts of digestive tract; Z90.710 Acquired absence of both cervix and uterus; Z90.89 Acquired absence of other organs; Z87.448 Personal history of other diseases of urinary system
CPT/HCPCS: 36415; 70360; 70491; 71046; 80053; 84703; 85025; 85379; 86308; 87430

== ENCOUNTER 2019-03-25 19:34 | Emergency (ER) | payer SELFPAY ==
[~2019-03-25] VITALS: Ht 162.6 cm; Wt 99.8 kg
[~2019-03-25 19:34] MED LIST changes: +CEFU250T80 PO
--- OUTSIDE RECORDS SUMMARY | 2019-03-25 19:42 | XMS REPORT | Continuity of Care Document ---
[...] TALIB GOLDNИРИНА 461.9 SINUSITIS ACUTE 11/19/2011 [employer], ИРИНА KAZ V65.42 COUNSELING - SMOKING CESSATION [...] Landeros 296.90 MOOD DISORDER NOS 09/07/2012 T[employer]IB [employer]OD[employer], ИРИНА KAZ 296.90 MOOD DISORDER NOS 09/07/2012 [employer], ИРИНА EMAMNUELH 296.90 MOOD DISORDER NOS 09/07/2012 AGUSTIN EDMUND BARRIENTOS Neli 296.90 MOOD DISORDER NOS 09/08/2012 MAYERSCHRISTA GOLDTito ИРИНА EMMANUELH V58.69 MEDICATION HIGH RISK 09/08/2012 LEONARD TOTH, ARVIN Landeros V58.69 MEDICATION HIGH RISK 09/08/2012 V58.69 MEDICATION HIGH RISK 09/08/2012 LEONARD TOTH, ARVIN Landeros V58.69 MEDICATION HIGH RISK 09/08/2012 [employer], ИРИНА EMMANUELH V58.69 MEDICATION HIGH RISK 09/08/2012 TAL[employer]OD[employer]ER, ИРИНА EMMANUELH V58.69 MEDICATION HIGH RISK 09/08/2012 AGUSTIN EDMUND BARRIENTOS Neli V58.69 MEDICATION HIGH RISK 07/14/2013 TALIB GOLDNИРИНАH 300.02 AN GEN ANXIETY 07/14/2013 EDMUND VELEZ DDS Neli 300.02 AN GEN ANXIETY Procedures Code Description [place] [address] ROUTINE VENIPUNCTURE 09/13/2012 96818 LIPID PANEL 09/13/2012 49868 CBC 09/13/2012 91839 CMP 09/13/2012 1604650 GFR CALC (RESULT ONLY) 09/13/2012 28664 T4 FREE 09/14/2012 96754 T3 TOTAL 09/14/2012 62589 TSH 09/14/2012 88830 VITAMIN D 25-HYDROXY (D2,D3 , TOTAL) 09/14/2012 64199 TESTOSTERONE-WOMEN & CHILDREN 09/17/2012 42737 INDIV PSYTX 45/50 MIN 11/17/2012 10410 PSYTX PT&/FAMILY 45 MINUTES 01/03/2013 90665 PSYCH PHARM MGMT 01/11/2013 92460 PSYTX PT&/FAMILY 45 MINUTES 01/17/2013 Results There is no data. Encounters ACCT No. Visit Date/Time Discharge Status Pt. Type Provider Facility Loc./Unit Complaint [id number] 10/03/2013 14:31:00 10/03/2013 23:59:59 CLS Outpatient EDMUND VELEZ DDS [id number] 07/14/2013 16:22:00 07/14/2013 23:59:59 CLS Outpatient ИРИНА MAYERS APRN [id number] 02/21/2013 10:42:00 02/21/2013 23:59:59 CLS Outpatient ИРИНА MAYERS APRN [id number] 01/11/2013 15:53:00 01/11/2013 23:59:59 CLS Outpatient ARVIN VALLE PHD [id number] 12/28/2012 15:53:00 12/28/2012 23:59:59 CLS Outpatient [id number] 11/17/2012 14:55:00 11/17/2012 23:59:59 CLS Outpatient ARVIN AVLLE PHD [id number] 09/13/2012 11:13:00 09/13/2012 23:59:59 CLS Outpatient ИРИНА MAYERS APRN
[2019-03-25] MEDS ORDERED: NS IV 1000 ML 1,000 ML IV SCH (20:15)
[2019-03-25] MEDS ORDERED: cefTRIAXone FOR IV USE 1,000 MG in WATER (STERILE) FOR INJECTION 10 ML IV ONE (20:15)
[2019-03-25 20:17] LABS: BASOPHILS % (AUTO) 0 % (0-10); EOSINOPHILS # (AUTO) 0.2 10^3/uL (0.0-0.3); EOSINOPHILS % (AUTO) 2 % (0-10); HEMATOCRIT 33 % (35-52); HEMOGLOBIN 10.7 G/DL (11.5-16.0); LYMPHOCYTES # (AUTO) 1.7 X 10^3 (1.0-4.0); LYMPHOCYTES % (AUTO) 20 % (12-44); MEAN CORPUSCULAR HEMOGLOBIN 29 PG (25-34); MEAN CORPUSCULAR HGB CONC 33 G/DL (32-36); MEAN CORPUSCULAR VOLUME 89 FL (80-99); MEAN PLATELET VOLUME 10.8 FL (7.4-10.4); MONOCYTES # (AUTO) 0.7 X 10^3 (0.0-1.0); MONOCYTES % (AUTO) 8 % (0-12); NEUTROPHILS # (AUTO) 5.9 X 10^3 (1.8-7.8); NEUTROPHILS % (AUTO) 70 % (42-75); PLATELET COUNT 379 10^3/uL (130-400); RED CELL DISTRIBUTION WIDTH 14.6 % (10.0-14.5); WHITE BLOOD COUNT 8.5 10^3/uL (4.3-11.0)
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
[2019-03-25 20:36] LABS: ALANINE AMINOTRANSFERASE 24 U/L (0-55); ALBUMIN 3.9 GM/DL (3.2-4.5); ALKALINE PHOSPHATASE 101 U/L (40-136); BILIRUBIN,TOTAL 0.3 MG/DL (0.1-1.0); BUN/CREATININE RATIO 13; CALCIUM 9.2 MG/DL (8.5-10.1); CARBON DIOXIDE 22 MMOL/L (21-32); CHLORIDE 107 MMOL/L (98-107); CREATININE SERUM 0.97 MG/DL (0.60-1.30); GFR ESTIMATED > 60; GLUCOSE 88 MG/DL (70-105); POTASSIUM 4.5 MMOL/L (3.6-5.0); SODIUM 141 MMOL/L (135-145); TOTAL PROTEIN 8.1 GM/DL (6.4-8.2)
[2019-03-25 20:39] LABS: ERYTHROCYTE SEDIMENTATION RATE 47 MM/HR (0-20)
[2019-03-25 20:41] LABS: BILIRUBIN,URINE NEGATIVE (NEGATIVE); CLARITY,URINE CLEAR; COLOR,URINE YELLOW; GLUCOSE, URINE (UA) NEGATIVE (NEGATIVE); KETONES,URINE NEGATIVE (NEGATIVE); LEUKOCYTE ESTERASE ,URINE 1+ (NEGATIVE); NITRITE,URINE NEGATIVE (NEGATIVE); PH,URINE 7 (5-9); PROTEIN,URINE 1+ (NEGATIVE); UROBILINOGEN,URINE 1 MG/DL (NORMAL)
[2019-03-25 20:51] LABS: BACTERIA,URINE FEW /HPF
[2019-03-25] MEDS ORDERED: SULF1TAB35 PO (20:52)
[2019-03-25] MEDS ORDERED: CEPH-507 PO (20:52)
[2019-03-25 20:55] LABS: AMPHETAMINE SCREEN, URINE NEGATIVE (NEGATIVE); BARBITURATE SCREEN URINE NEGATIVE (NEGATIVE); BENZODIAZEPINES SCREEN URINE POSITIVE (NEGATIVE); CANNABINOID SCREEN, URINE NEGATIVE (NEGATIVE); COCAINE SCREEN URINE NEGATIVE (NEGATIVE); METHADONE STAT NEGATIVE (NEGATIVE); METHAMPHETAMINE SCREEN URINE S NEGATIVE (NEGATIVE); OPIATE SCREEN URINE NEGATIVE (NEGATIVE); OXYCODONE STAT NEGATIVE (NEGATIVE); PROPOXYPHENE STAT NEGATIVE (NEGATIVE); TRICYCLIC ANTIDEPRESSANTS SCRE NEGATIVE (NEGATIVE)
[2019-03-25 21:26] VITALS: BP 139/96
== END 2019-03-25 21:27 | disposition home or self-care (01) ==
LOC: EDUNIT# 19:34 → ER 19:36
DX: L03.115 Cellulitis of right lower limb (principal); L03.116 Cellulitis of left lower limb; E03.9 Hypothyroidism, unspecified; F41.9 Anxiety disorder, unspecified; F31.9 Bipolar disorder, unspecified; F42.9 Obsessive-compulsive disorder, unspecified; Z88.0 Allergy status to penicillin; Z88.6 Allergy status to analgesic agent; Z90.49 Acquired absence of other specified parts of digestive tract; Z82.49 Family history of ischemic heart disease and other diseases of the circulatory system; Z98.890 Other specified postprocedural states; Z90.710 Acquired absence of both cervix and uterus; Z90.89 Acquired absence of other organs; Z87.448 Personal history of other diseases of urinary system
CPT/HCPCS: 36415; 80053; 80306; 81000; 85025; 85652; 87040; 87088

== ENCOUNTER 2019-11-14 00:01 | Emergency (ER) | payer SELFPAY ==
[~2019-11-14] VITALS: Ht 162 cm; Wt 110.0 kg
[~2019-11-14 00:01] MED LIST changes: +CEPH-507 PO
[2019-11-14] MEDS ORDERED: NAPR-915 PO (01:09)
[2019-11-14] MEDS ORDERED: RX-NAPROXEN (NAPROSYN) 250 MG TAB PPK#4 PO STA (01:09)
[2019-11-14] MEDS ORDERED: CLIN300C11 PO (01:09)
[2019-11-14] MEDS ORDERED: LIDO15SO2 MM (01:09)
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
[2019-11-14] MEDS ORDERED: CLINDAMYCIN 300 MG/2ML (CLEOCIN) VIAL ONE (01:12)
[2019-11-14] MEDS ORDERED: LIDOCAINE 2% VISCOUS 15 ML UDC PO ONE (01:15)
[2019-11-14] MEDS ORDERED: CLINDAMYCIN 600 MG/4ML (CLEOCIN) VIAL IM ONE (01:15)
[2019-11-14 01:41] VITALS: BP 140/98
== END 2019-11-14 01:42 | disposition home or self-care (01) ==
LOC: EDUNIT# 00:01 → ER 00:04
DX: K04.7 Periapical abscess without sinus (principal); E03.9 Hypothyroidism, unspecified; F41.9 Anxiety disorder, unspecified; F31.9 Bipolar disorder, unspecified; F42.9 Obsessive-compulsive disorder, unspecified; F17.210 Nicotine dependence, cigarettes, uncomplicated; Z88.1 Allergy status to other antibiotic agents; Z88.0 Allergy status to penicillin; Z88.5 Allergy status to narcotic agent; Z90.49 Acquired absence of other specified parts of digestive tract; Z90.710 Acquired absence of both cervix and uterus; Z90.89 Acquired absence of other organs; Z82.49 Family history of ischemic heart disease and other diseases of the circulatory system
CPT/HCPCS: 96372; 99284

== ENCOUNTER 2020-05-17 13:32 | Emergency (ER) | payer OTHER ==
[~2020-05-17] VITALS: Ht 162.5 cm; Wt 115.2 kg
[~2020-05-17 13:32] MED LIST changes: +CLIN300C11 PO; +LIDO20SO23 MM; +NAPR-915 PO
[2020-05-17 13:45] LABS: BILIRUBIN,URINE NEGATIVE (NEGATIVE); CLARITY,URINE CLEAR; COLOR,URINE YELLOW; GLUCOSE, URINE (UA) NEGATIVE (NEGATIVE); KETONES,URINE NEGATIVE (NEGATIVE); LEUKOCYTE ESTERASE ,URINE NEGATIVE (NEGATIVE); NITRITE,URINE NEGATIVE (NEGATIVE); PROTEIN,URINE TRACE (NEGATIVE)
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
[2020-05-17 13:54] LABS: BACTERIA,URINE MODERATE /HPF
[2020-05-17] MEDS ORDERED: LACTATED RINGERS 1,000 ML IV ONE (13:56)
[2020-05-17 14:00] LABS: AMPHETAMINE SCREEN, URINE POSITIVE (NEGATIVE); BARBITURATE SCREEN URINE NEGATIVE (NEGATIVE); BENZODIAZEPINES SCREEN URINE NEGATIVE (NEGATIVE); CANNABINOID SCREEN, URINE NEGATIVE (NEGATIVE); COCAINE SCREEN URINE NEGATIVE (NEGATIVE); METHADONE STAT NEGATIVE (NEGATIVE); METHAMPHETAMINE SCREEN URINE S POSITIVE (NEGATIVE); OPIATE SCREEN URINE NEGATIVE (NEGATIVE); OXYCODONE STAT NEGATIVE (NEGATIVE); PROPOXYPHENE STAT NEGATIVE (NEGATIVE); TRICYCLIC ANTIDEPRESSANTS SCRE NEGATIVE (NEGATIVE)
[2020-05-17] MEDS ORDERED: cefTRIAXone FOR IV USE 1,000 MG in WATER (STERILE) FOR INJECTION 10 ML IV ONE (14:00)
--- NOTE | 2020-05-17 14:05 | NUR ---
Unable to obtain IV access. Pt reports being in rehab for IV meth use. Dr. Gayle notified.
[2020-05-17] MEDS ORDERED: LIDOCAINE 1% INJ 20 ML 20 ML VIAL INJ ONE (14:30)
[2020-05-17] MEDS ORDERED: cefTRIAXone 1,000 MG/2.86 ml vial (IM ONLY) IM ONE (14:30)
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
[2020-05-17 14:50] LABS: BASOPHILS % (AUTO) 0 % (0-10); EOSINOPHILS # (AUTO) 0.2 10^3/uL (0.0-0.3); EOSINOPHILS % (AUTO) 3 % (0-10); HEMATOCRIT 36 % (35-52); HEMOGLOBIN 11.6 G/DL (11.5-16.0); LYMPHOCYTES # (AUTO) 1.7 X 10^3 (1.0-4.0); LYMPHOCYTES % (AUTO) 25 % (12-44); MEAN CORPUSCULAR HEMOGLOBIN 29 PG (25-34); MEAN CORPUSCULAR HGB CONC 33 G/DL (32-36); MEAN CORPUSCULAR VOLUME 90 FL (80-99); MEAN PLATELET VOLUME 10.1 FL (7.4-10.4); MONOCYTES # (AUTO) 0.4 X 10^3 (0.0-1.0); MONOCYTES % (AUTO) 6 % (0-12); NEUTROPHILS # (AUTO) 4.6 X 10^3 (1.8-7.8); NEUTROPHILS % (AUTO) 67 % (42-75); PLATELET COUNT 329 10^3/uL (130-400); RED CELL DISTRIBUTION WIDTH 14.6 % (10.0-14.5); WHITE BLOOD COUNT 6.9 10^3/uL (4.3-11.0)
--- NOTE | 2020-05-17 15:07 | Diagnostic Imaging Report ---
EXAMINATION: Supine abdomen at 03:04 p.m. INDICATION: Hematuria. FINDINGS: There is some gas in both large and small bowel in a nonspecific fashion. There is no evidence for bowel obstruction. There is no mass or organomegaly identified. There are no pathological calcifications overlying the kidneys, although both kidneys are partially obscured by overlying bowel gas and fecal material. There are number of calcifications in the pelvis. I suspect that these are phleboliths. There are also vascular calcifications within the pelvis. The osseous structures are intact. IMPRESSION: 1. The bowel gas pattern is nonspecific. There is no acute abnormality identified. 2. There is no evidence for nephrolithiasis. Dictated by: Dictated on workstation # [id number]
[2020-05-17 15:09] LABS: ALBUMIN 4.1 GM/DL (3.2-4.5); BILIRUBIN,TOTAL 0.3 MG/DL (0.1-1.0); CALCIUM 9.5 MG/DL (8.5-10.1); CREATININE SERUM 1.05 MG/DL (0.60-1.30); POTASSIUM 3.1 MMOL/L (3.6-5.0); TOTAL PROTEIN 7.8 GM/DL (6.4-8.2)
--- NOTE | 2020-05-17 15:28 | Diagnostic Imaging Report ---
CT ABD/PELVIS WO(KIDNEY STONE). TECHNIQUE: Unenhanced CT imaging of the abdomen and pelvis was performed. 2-D reformats are created and submitted for interpretation. Automatic exposure controls were utilized to optimize patient dose. INDICATION: Blood in urine, back pain. COMPARISON: None available. FINDINGS: Evaluation of the abdominal viscera is mildly limited without contrast. Lower chest: The lung bases are clear. No pericardial or pleural effusion. Peritoneum: No free intraperitoneal air or fluid. Liver and biliary system: Unenhanced liver is normal. The gallbladder is normal. No biliary duct dilation. Spleen and Pancreas: Spleen is normal. Unenhanced pancreas is grossly normal. Adrenals: Normal. tract: No renal or ureteral calculi. No obstructive uropathy. Urinary bladder is decompressed, limiting assessment. Hysterectomy has been performed. No adnexal mass. GI tract: Stomach is partially filled with fluid and there is no wall thickening. No bowel obstruction. No pericolonic inflammatory changes. Appendectomy. Vasculature and Lymph nodes: Normal caliber aorta. No abdominal or pelvic lymphadenopathy. Musculoskeletal: No concerning osseous lesion. IMPRESSION: 1. No urinary tract calculi or obstructive uropathy. 2. Appendectomy. No features of colitis or diverticulitis. 3. Hysterectomy. Dictated by: Dictated on workstation # [id number]
[2020-05-17] MEDS ORDERED: NITR-65 PO (15:38)
[2020-05-17 15:40] VITALS: BP 96/80
== END 2020-05-17 15:40 | disposition home or self-care (01) ==
LOC: EDUNIT# 13:32 → ER 13:33
DX: N39.0 Urinary tract infection, site not specified (principal); G89.29 Other chronic pain; M54.9 Dorsalgia, unspecified; E03.9 Hypothyroidism, unspecified; F17.210 Nicotine dependence, cigarettes, uncomplicated; Z79.890 Hormone replacement therapy; Z87.820 Personal history of traumatic brain injury; Z79.891 Long term (current) use of opiate analgesic; Z88.0 Allergy status to penicillin; Z88.5 Allergy status to narcotic agent; Z82.49 Family history of ischemic heart disease and other diseases of the circulatory system
CPT/HCPCS: 36415; 74018; 74176; 80053; 80306; 81000; 85025; 87088

== ENCOUNTER 2020-11-28 03:06 | Emergency (ER) | payer SELFPAY ==
[~2020-11-28] VITALS: Ht 162.5 cm; Wt 105.6 kg
[~2020-11-28 03:06] MED LIST changes: -CLIN300C11 PO; +CLIN300C12 PO; +NITR-65 PO
[2020-11-28 03:19] VITALS: BP 188/125
[2020-11-28] MEDS ORDERED: PHENAZOPYRIDINE 100 MG (PYRIDIUM) TABLET PO ONE (03:30)
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
[2020-11-28 03:33] LABS: BILIRUBIN,URINE NEGATIVE (NEGATIVE); CLARITY,URINE CLOUDY; COLOR,URINE BROWN; GLUCOSE, URINE (UA) NEGATIVE (NEGATIVE); KETONES,URINE NEGATIVE (NEGATIVE); LEUKOCYTE ESTERASE ,URINE 2+ (NEGATIVE); NITRITE,URINE POSITIVE (NEGATIVE); PROTEIN,URINE 3+ (NEGATIVE)
[2020-11-28 03:42] LABS: BACTERIA,URINE MODERATE /HPF; RBC,URINE TNTC /HPF; SQUAMOUS EPITHELIAL CELL,UR RARE /HPF; WBC,URINE 25-50 /HPF
[2020-11-28] MEDS ORDERED: cefTRIAXone 1,000 MG/2.86 ml vial (IM ONLY) IM SCH (03:45)
[2020-11-28] MEDS ORDERED: LIDOCAINE 1% INJ 20 ML 20 ML VIAL INJ ONE (03:45)
[2020-11-28] MEDS ORDERED: SULF1TAB35 PO (03:48)
[2020-11-28] MEDS ORDERED: NAPROXEN 250 MG (NAPROSYN) TABLET PO ONE (04:00)
== END 2020-11-28 04:14 | disposition home or self-care (01) ==
LOC: EDUNIT# 03:06 → ER 03:12
DX: N30.00 Acute cystitis without hematuria (principal); E03.9 Hypothyroidism, unspecified; G89.29 Other chronic pain; Z79.890 Hormone replacement therapy; Z79.891 Long term (current) use of opiate analgesic; Z79.1 Long term (current) use of non-steroidal anti-inflammatories (NSAID); Z88.0 Allergy status to penicillin; Z88.1 Allergy status to other antibiotic agents; Z88.5 Allergy status to narcotic agent
CPT/HCPCS: 36415; 81000; 87077; 87088; 87186; 87210; 87591; 99284

== ENCOUNTER 2021-04-21 00:03 | Emergency (ER) | payer SELFPAY ==
[~2021-04-21] VITALS: Ht 162 cm; Wt 122.5 kg
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
[2021-04-21 00:54] LABS: BASOPHILS % (AUTO) 0 % (0-10); EOSINOPHILS # (AUTO) 0.2 10^3/uL (0.0-0.3); EOSINOPHILS % (AUTO) 2 % (0-10); HEMATOCRIT 36 % (35-52); HEMOGLOBIN 11.7 g/dL (11.5-16.0); LYMPHOCYTES # (AUTO) 1.9 10^3/uL (1.0-4.0); LYMPHOCYTES % (AUTO) 20 % (12-44); MEAN CORPUSCULAR HEMOGLOBIN 28 pg (25-34); MEAN CORPUSCULAR HGB CONC 32 g/dL (32-36); MEAN CORPUSCULAR VOLUME 88 fL (80-99); MEAN PLATELET VOLUME 10.3 fL (9.0-12.2); MONOCYTES # (AUTO) 0.7 10^3/uL (0.0-1.0); MONOCYTES % (AUTO) 7 % (0-12); NEUTROPHILS # (AUTO) 6.5 10^3/uL (1.8-7.8); NEUTROPHILS % (AUTO) 70 % (42-75); PLATELET COUNT 305 10^3/uL (130-400); WHITE BLOOD COUNT 9.3 10^3/uL (4.3-11.0)
[2021-04-21 01:03] LABS: ALBUMIN 4.1 GM/DL (3.2-4.5)
[2021-04-21 01:04] LABS: CHLORIDE 105 MMOL/L (98-107); POTASSIUM 3.8 MMOL/L (3.6-5.0); SODIUM 142 MMOL/L (135-145)
[2021-04-21 01:05] LABS: CALCIUM 9.7 MG/DL (8.5-10.1)
[2021-04-21 01:06] LABS: GLUCOSE 122 MG/DL (70-105); TOTAL PROTEIN 7.8 GM/DL (6.4-8.2)
[2021-04-21 01:07] LABS: CARBON DIOXIDE 22 MMOL/L (21-32)
[2021-04-21 01:08] LABS: BILIRUBIN,TOTAL 0.3 MG/DL (0.1-1.0)
[2021-04-21 01:09] LABS: ALKALINE PHOSPHATASE 108 U/L (40-136)
[2021-04-21 01:10] LABS: CREATININE SERUM 0.86 MG/DL (0.60-1.30); GFR ESTIMATED > 60
[2021-04-21 01:11] LABS: BUN/CREATININE RATIO 15
[2021-04-21 01:13] LABS: ALANINE AMINOTRANSFERASE 11 U/L (0-55)
[2021-04-21] MEDS ORDERED: CLIN150C18 PO (02:25)
[2021-04-21 02:27] VITALS: BP 168/99
--- NOTE | 2021-04-21 07:11 | Diagnostic Imaging Report ---
PROCEDURE: CT neck soft tissue without contrast. TECHNIQUE: Multiple contiguous axial images were obtained through the neck without the use of intravenous contrast. Auto Exposure Controls were utilized during the CT exam to meet ALARA standards for radiation dose reduction. INDICATION: Swelling, lump in neck. Compared with soft tissue neck CT dated 03/01/2019. Sensitivity limited by the absence of vascular contrast. The prevertebral and retropharyngeal spaces appeared unremarkable. Some prominent left greater than right cervical lymph nodes and level 2, largest is 1.5 cm, previously 1.6 cm. Some edematous infiltration of the fat in the left parapharyngeal space as well as superficial to the platysma is present, likely inflammatory with lymph nodes presumed reactive. No soft tissue gas or opaque foreign body. The parotid and submandibular glands and cells were unremarkable. Bony structures intact. Nasopharynx, oropharynx and hypopharynx unremarkable. Thoracic inlet and pulmonary apices nonacute. IMPRESSION: 1. Some edematous infiltration of the left neck fat along the parapharyngeal and superficial spaces without abscess or janelle phlegmon although sensitivity limited by the lack of contrast. Some, left greater than right, mild cervical lymphadenopathy similar to the comparison of 2019, likely reactive. Dictated by: Dictated on workstation # [id number]
== END 2021-04-21 02:31 | disposition home or self-care (01) ==
LOC: EDUNIT# 00:03 → ER 00:05
DX: R59.0 Localized enlarged lymph nodes (principal); M54.2 Cervicalgia; R00.0 Tachycardia, unspecified; E89.0 Postprocedural hypothyroidism; G89.29 Other chronic pain; M54.9 Dorsalgia, unspecified; E66.9 Obesity, unspecified; F17.210 Nicotine dependence, cigarettes, uncomplicated; Z90.89 Acquired absence of other organs; Z68.42 Body mass index [BMI] 45.0-49.9, adult; Z79.890 Hormone replacement therapy; Z79.891 Long term (current) use of opiate analgesic; Z79.1 Long term (current) use of non-steroidal anti-inflammatories (NSAID); Z88.0 Allergy status to penicillin; Z88.1 Allergy status to other antibiotic agents
CPT/HCPCS: 36415; 70490; 80053; 85025; 86141

== ENCOUNTER 2021-07-29 17:00 | Emergency (ER) | payer SELFPAY ==
[~2021-07-29] VITALS: Ht 162 cm; Wt 108.0 kg
[~2021-07-29 17:00] MED LIST changes: +CLIN150C18 PO; -SULF1TAB35 PO
[2021-07-29 17:17] VITALS: BP 158/111
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
[2021-07-29] MEDS ORDERED: ACHD5005 PO (17:37)
[2021-07-29] MEDS ORDERED: DOXY100T2 PO (17:37)
== END 2021-07-29 17:40 | disposition home or self-care (01) ==
LOC: EDUNIT# 17:00 → ER 17:05
DX: L02.211 Cutaneous abscess of abdominal wall (principal); E03.9 Hypothyroidism, unspecified; G89.29 Other chronic pain; M54.9 Dorsalgia, unspecified; F17.200 Nicotine dependence, unspecified, uncomplicated; Z87.820 Personal history of traumatic brain injury; Z79.890 Hormone replacement therapy; Z79.891 Long term (current) use of opiate analgesic; Z79.899 Other long term (current) drug therapy
CPT/HCPCS: 10061; 87070; 87077; 87186; 87205

== ENCOUNTER 2021-08-11 17:57 | Emergency (ER) | payer SELFPAY ==
[~2021-08-11] VITALS: Ht 162 cm; Wt 104.0 kg
[~2021-08-11 17:57] MED LIST changes: +ACHD5005 PO; +DOXY100T2 PO
[2021-08-11 18:55] LABS: BILIRUBIN,URINE NEGATIVE (NEGATIVE); CLARITY,URINE CLOUDY; COLOR,URINE YELLOW; GLUCOSE, URINE (UA) NEGATIVE (NEGATIVE); KETONES,URINE NEGATIVE (NEGATIVE); LEUKOCYTE ESTERASE ,URINE 1+ (NEGATIVE); NITRITE,URINE POSITIVE (NEGATIVE); PROTEIN,URINE 2+ (NEGATIVE)
[2021-08-11 19:09] LABS: BACTERIA,URINE MODERATE /HPF; RBC,URINE TNTC /HPF; SQUAMOUS EPITHELIAL CELL,UR RARE /HPF
[2021-08-11] MEDS ORDERED: ONDANSETRON 4 MG/2 ML (SDV) Z0FRAN IVP ONE (19:30)
[2021-08-11] MEDS ORDERED: LACTATED RINGERS 1,000 ML IV ONE (19:30)
[2021-08-11] MEDS ORDERED: KETOROLAC 30 MG/ML VIAL IVP ONE (19:30)
[2021-08-11] MEDS ORDERED: ONDANSETRON 4 MG (ZOFRAN) ORAL DISSOLVE TAB SL ONE (20:00)
--- NOTE | 2021-08-11 20:12 | Diagnostic Imaging Report ---
EXAMINATION: CT abdomen and pelvis without contrast. TECHNIQUE: Multiple contiguous axial images were obtained through the abdomen and pelvis without the use of intravenous contrast. All CT scans use one or more of the following dose optimizing techniques: automated exposure control, MA and/or KvP adjustment based on patient size and exam type or iterative reconstruction. HISTORY: Flank pain COMPARISON: 05/17/2020 FINDINGS: Limited views of the lower thorax are unremarkable. The liver is normal without focal lesion. There is no biliary ductal dilation. Gallbladder is normal. Pancreas is normal. Spleen is normal. Adrenal glands are normal. The kidneys are normal. There is no hydronephrosis. Urinary bladder is normal. There are no renal or ureteral stones. Visualized bowel is normal in caliber without obstruction or inflammation. No free fluid or air. There are enlarged right groin lymph nodes measuring up to 13 mm. They are new from prior exam. Aorta is normal in caliber without aneurysm. There are no suspicious osseus lesions. IMPRESSION: 1. Nonspecific mildly enlarged right groin lymph nodes. Correlate for any evidence of an infectious process in the right lower extremity. Dictated by: Dictated on workstation # [id number]
[2021-08-11 20:39] LABS: BASOPHILS % (AUTO) 1 % (0-10); EOSINOPHILS # (AUTO) 0.1 10^3/uL (0.0-0.3); EOSINOPHILS % (AUTO) 2 % (0-10); HEMATOCRIT 35 % (35-52); HEMOGLOBIN 11.1 g/dL (11.5-16.0); LYMPHOCYTES # (AUTO) 1.6 10^3/uL (1.0-4.0); LYMPHOCYTES % (AUTO) 24 % (12-44); MEAN CORPUSCULAR HEMOGLOBIN 28 pg (25-34); MEAN CORPUSCULAR HGB CONC 31 g/dL (32-36); MEAN CORPUSCULAR VOLUME 88 fL (80-99); MEAN PLATELET VOLUME 10.7 fL (9.0-12.2); MONOCYTES # (AUTO) 0.5 10^3/uL (0.0-1.0); MONOCYTES % (AUTO) 8 % (0-12); NEUTROPHILS # (AUTO) 4.2 10^3/uL (1.8-7.8); NEUTROPHILS % (AUTO) 65 % (42-75); PLATELET COUNT 296 10^3/uL (130-400); WHITE BLOOD COUNT 6.4 10^3/uL (4.3-11.0)
[2021-08-11 20:59] LABS: ALBUMIN 3.5 GM/DL (3.2-4.5); BILIRUBIN,TOTAL 0.2 MG/DL (0.1-1.0); CREATININE SERUM 0.77 MG/DL (0.60-1.30); POTASSIUM 3.8 MMOL/L (3.6-5.0); TOTAL PROTEIN 7.5 GM/DL (6.4-8.2)
[2021-08-11] MEDS ORDERED: PHENAZOPYRIDINE 100 MG (PYRIDIUM) TABLET PO ONE (21:30)
[2021-08-11] MEDS ORDERED: AZITHROMYCIN 250 MG TAB (ZITHROMAX) PO STA (21:52)
[2021-08-11] MEDS ORDERED: ACYCLOVIR 400 MG TABLET (ZOVIRAX) PO STA (21:53)
[2021-08-11] MEDS ORDERED: ACYC400T21 PO (22:00)
[2021-08-11] MEDS ORDERED: CEPH500T PO (22:00)
[2021-08-11] MEDS ORDERED: cefTRIAXone 1,000 MG in WATER (STERILE) FOR INJECTION 10 ML IV ONE (22:00)
[2021-08-11] MEDS ORDERED: PHEN-640 PO (22:00)
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
[2021-08-11] MEDS ORDERED: ONDA4TAB11 SL (22:43)
[2021-08-11] MEDS ORDERED: METR500T PO (22:43)
[2021-08-11] MEDS ORDERED: metroNIDAZOLE 500 MG (FLAGYL) TAB PO ONE (22:45)
[2021-08-11 23:12] VITALS: BP 152/97
== END 2021-08-11 23:10 | disposition home or self-care (01) ==
LOC: EDUNIT# 17:57 → ER 17:58
DX: T74.21XA Adult sexual abuse, confirmed, initial encounter (principal); N39.0 Urinary tract infection, site not specified; N76.0 Acute vaginitis; N76.6 Ulceration of vulva; E89.0 Postprocedural hypothyroidism; F17.210 Nicotine dependence, cigarettes, uncomplicated; Z87.42 Personal history of other diseases of the female genital tract; Z79.890 Hormone replacement therapy; Z88.1 Allergy status to other antibiotic agents
CPT/HCPCS: 36415; 74176; 80053; 81000; 83690; 85025; 86141; 87070; 87077; 87088; 87186; 87205; 87210; 87254; 87491; 87591